=== PATIENT | female | born 1965 ===

== ENCOUNTER 2023-09-06 14:41 | Emergency (ER) | payer BC, SELFPAY ==
[2023-09-06 14:44] VITALS: BP 99/65
[2023-09-06 15:02] VITALS: BMI 24.5
--- NOTE | 2023-09-06 15:09 | ED.GENMED ---
History of Present Illness
<Sintia Monte PA-C - Last Filed: 09/06/23 19:15>
General
Chief Complaint: Musculo-Skeletal Complaint
Source: patient
Exam Limitations: none
Time Seen by Provider: 09/06/23 15:09
Nursing documentation reviewed up to this point in time: agreed with
History of Present Illness
History of Present Illness:
58-year-old female presenting emergency department today with concerns of left wrist pain after being knocked down by her horse. Patient states that she was lifting up her horses foot to try to clean it when the horse became frustrated and pushed
her back while she was holding the foot. Patient states that she was pushed back and she fell back onto her left wrist with her arm outstretched. Patient states that she did not hit her head when she fell, patient denies any headache, neck pain.
Patient denies any loss of consciousness. Patient denies any other injuries. Patient states the horse did not hit her in the abdomen but rather jolted her down as she was holding its leg. Patient states that she is able to get up on her own after
the incident and is still swelling in her wrist. Patient took Tylenol for the pain she states that this did help.
Review of Systems
<Sintia Monte PA-C - Last Filed: 09/06/23 19:15>
Review of Systems
All Other Systems: ROS reviewed and negative except as documented in HPI and ROS
Phy Exam
<Sintia Monte PA-C - Last Filed: 09/06/23 19:15>
Physical Exam
Physical Exam:
General: Patient is well appearing and in no acute distress; non-toxic
Skin: Warm and dry, no rashes or lesions
Head: Normocephalic, atraumatic
Eyes: Sclera non-icteric. EOMs intact.
Neck: Patient seen spontaneously moving cervical spine, no tenderness palpation of the cervical spine.
Cardiac: Regular rate
Peripheral Vascular: No lower extremity swelling or edema. 2+ radial and ulnar pulses bilaterally. Brisk capillary refill.
Pulm: Normal respiratory effort
Abdomen: No abdominal tenderness to palpation
Musculoskeletal: Swelling noted over the left wrist and significant tenderness over the radius, no ecchymosis.
Neuro: CN II-XII intact, no focal neurologic deficits. Sensation intact to light touch of the upper extremities bilaterally.
Psychiatric: Appropriate mood and affect.
Course
<Sintia Monte PA-C - Last Filed: 09/06/23 19:15>
Orders/Labs/Results
Orders:
Orders
09/06/23 14:48
Wrist, Left 3 Views CR [CR Wrist - Left Min 3 Views] Urgent
Comment:
Reason For Exam: injury
09/06/23 15:34
Sling Left-Treatment ONCE
Vital Signs
Initial and Last Documented VS:
Initial Vital Signs
Temp Pulse Resp BP Pulse Ox
98.2 F 75 16 99/65 99
09/06/23 14:44 09/06/23 14:44 09/06/23 14:44 09/06/23 14:44 09/06/23 14:44
Last Documented Vital Signs
Temp Pulse Resp BP Pulse Ox
98.2 F 75 16 99/65 99
09/06/23 14:44 09/06/23 14:44 09/06/23 14:44 09/06/23 14:44 09/06/23 14:44
<John Watson DO - Last Filed: 09/06/23 16:00>
Orders/Labs/Results
Orders:
Orders
09/06/23 14:48
Wrist, Left 3 Views CR [CR Wrist - Left Min 3 Views] Urgent
Comment:
Reason For Exam: injury
09/06/23 15:34
Sling Left-Treatment ONCE
Vital Signs
Initial and Last Documented VS:
Initial Vital Signs
Temp Pulse Resp BP Pulse Ox
98.2 F 75 16 99/65 99
09/06/23 14:44 09/06/23 14:44 09/06/23 14:44 09/06/23 14:44 09/06/23 14:44
Last Documented Vital Signs
Temp Pulse Resp BP Pulse Ox
98.2 F 75 16 99/65 99
09/06/23 14:44 09/06/23 14:44 09/06/23 14:44 09/06/23 14:44 09/06/23 14:44
Procedures
<Sintia Monte PA-C - Last Filed: 09/06/23 19:15>
Splinting/Sling Placement
Left Arm:
Procedure completed by: Sintia Monte PA-C
Pre-splint extermity exam: neurovascular intact
Type of splint: sugar-tong
Splint material: fiberglass
Splint checked by provider?: Yes
Type of sling: sling fitted
Normal distal neurovascular exam?: Yes
<Sintia Monte PA-C - Last Filed: 09/06/23 19:15>
MDM/Problems Addressed
Differential Diagnosis Includes:
ddx include distal radius fracture, distal ulnar fracture, scaphoid fracture
MDM/Problems Addressed:
Radial Fracture:
58-year-old female who presents today with left wrist pain following a fall on outstretched hand from being knocked down from horse. Patient denies any other injuries. Patient denies any neck pain or head trauma. Patient was placed in a
sugar-tong splint. Patient stable for discharge with Ortho follow-up.
<Sintia Monte PA-C - Last Filed: 09/06/23 19:15>
*Critical Care Note
Total Time (30-74mins, 75-104mins- exclusive of procedures): Not Applicable
ED Attending Note
<Sintia Monte PA-C - Last Filed: 09/06/23 19:15>
-
Portions of this chart may have been created with voice recognition software.� Occasional wrong word or��sound alike� substitutions may have occurred due to the inherent limitations of voice recognition software.
<John Watson DO - Last Filed: 09/06/23 16:00>
ED Attending Note
Patient seen and examined by attending physician: Yes
I performed the substantive portion of visit, reviewed & personally made and approve the management plan that is documented in note by myself or LINDA.: Yes
ED Attending Note:
Pt presents with pain in left wrist after being knocked over by her horse. Pt is right hand dominant.
+ pain/swelling on exam. N/V intact
+ fx of distal radius on x-ray.
Splinted by [facility]. remains n/v intact.
Ortho f/u
Discharge Plan
Departure
Patient Disposition: Home (Routine Discharge)
Date of Disposition: 09/06/23
Time of Disposition: 15:59
Patient with high blood pressure during this ER visit?: No
Condition: Good
Discharge Problem:
Distal radial fracture
Instructions: Wrist Fracture (DC), Splint Care
Prescriptions:
New
oxycodone-acetaminophen [Percocet] 5-325 mg tablet
1 tab PO Q6HPRN PRN (Reason: pain) Qty: 8 0RF
Referrals:
Ronald Fox MD [Active] - Call in 1-3 days for appt
Nelia Summers MD [Family Provider] -
Activity Restrictions/Additional Instructions:
Please keep the splint dry. Please follow-up with orthopedics, please call the attached number and schedule an appointment for follow-up tomorrow.
Please return to emergency department should you experience numbness or tingling in your fingers, inability to move your fingers, increasing pain or swelling, or any other concerns.
We have sent perocet to your pharmacy. You can take one tablet every 6 hours as needed for pain. This medication contains Tylenol.
Interventions
Interventions:
*Risk Screen - Suicide Last Done: 09/06/23 14:44
*General Assessment Last Done: 09/06/23 14:44
*Neglect/Abuse Screening Last Done: 09/06/23 14:44
ED- Fall Risk Assessment Last Done: 09/06/23 15:02
*ED COVID-19 Vaccine History Last Done: 09/06/23 15:02
*Nursing Disposition Last Done: 09/06/23 16:17
ED-Musculoskeletal Assessment Last Done: 09/06/23 15:02
Discharge Date and Time
Discharge Date/Time: 09/06/23 16:17
Print Language: FAROESE
== END 2023-09-06 16:17 | disposition home or self-care (01) ==
LOC: EMR 14:41
PROVIDERS: EMERGENCY PHYSICIAN Emergency Medicine; FAMILY PHYSICIAN Family Medicine
DX: S52.572A Other intraarticular fracture of lower end of left radius, initial encounter for closed fracture (principal); W55.12XA Struck by horse, initial encounter
CPT/HCPCS: 99283; 29125; 73110

== ENCOUNTER → 2023-09-07 15:35 | Outpatient (REF) | payer BC, SELFPAY | LOC: RCS 15:35 | PROVIDERS: ATTENDING PHYSICIAN Orthopaedic Surgery Hand Surgery | DX: Z01.818 Encounter for other preprocedural examination (principal) | CPT/HCPCS: 93005 ==

== ENCOUNTER → 2024-04-04 15:43 | Outpatient (REF) | payer BC, SELFPAY | LOC: RCS 15:43 | PROVIDERS: ATTENDING PHYSICIAN Orthopaedic Surgery Hand Surgery | DX: Z01.818 Encounter for other preprocedural examination (principal) | CPT/HCPCS: 93005 ==

== ENCOUNTER 2024-04-09 06:13 | Day surgery (SDC) | payer BC, SELFPAY ==
[2024-04-09] VITALS (11 sets, daily range): BP systolic 111–155; BP diastolic 76–94; BMI 19.5
[2024-04-09] MEDS: TYLENOL 1000 MG PO (11:26)
[2024-04-09] MEDS: CELEBREX 200 MG PO (11:26)
[2024-04-09] MEDS: NORMOSOL-R/PLASMALYTE-A 1000 IV (11:31)
[2024-04-09] MEDS: DILAUDID 0.25 MG IV (13:37)
== END 2024-04-09 15:25 | disposition home or self-care (01) ==
LOC: SDS 06:13
PROVIDERS: ATTENDING PHYSICIAN Orthopaedic Surgery Hand Surgery
PROC: 0LN60ZZ Release Left Lower Arm and Wrist Tendon, Open Approach (ICD-10-PCS; 2024-04-09)
PROC: 0LN80ZZ Release Left Hand Tendon, Open Approach (ICD-10-PCS; 2024-04-09)
PROC: 0PPJ04Z Removal of Internal Fixation Device from Left Radius, Open Approach (ICD-10-PCS; 2024-04-09)
DX: T84.84XA Pain due to internal orthopedic prosthetic devices, implants and grafts, initial encounter (principal); Y79.8 Miscellaneous orthopedic devices associated with adverse incidents, not elsewhere classified; M25.632 Stiffness of left wrist, not elsewhere classified
CPT/HCPCS: 20680; 25295; 26440 ×4